=== PATIENT | male | born 1950 | race Caucasian/White ===

== ENCOUNTER 2016-12-21 08:08 | Emergency (ER) | payer MEDICARE ==
[~2016-12-21 08:08] MED LIST: ASPI-612 PO; ASPI325T8 PO; ATOR20TA58 PO; LISI-334 PO; METO25TA4 PO
[2016-12-21 08:50] LABS: BASO % 1 % (0-3); EOS % 2 % (0-3); HEMATOCRIT 43.6 % (39.0-53.0); HEMOGLOBIN 15.1 g/dL (13.0-17.5); LYMPH # 1.6 x10^3/uL (1.0-4.8); LYMPH % 29 % (24-48); MEAN CORPUSCULAR HEMOGLOBIN 34 pg (25-35); MEAN CORPUSCULAR HGB CONC 35 g/dL (31-37); MEAN CORPUSCULAR VOLUME 98 fL (79-100); MONO % 16 % (0-9); NEUT % 52 % (31-73); PLATELET COUNT 160 x10^3/uL (140-400); RED BLOOD COUNT 4.43 x10^6/uL (4.30-5.70); RED CELL DISTRIBUTION WIDTH 12.6 % (11.5-14.5); WHITE BLOOD COUNT 5.4 x10^3/uL (4.0-11.0)
--- NOTE | 2016-12-21 08:56 | RAD ---
AP portable chest radiograph 12/21/2016 Clinical History: Chest pain and tightness. Shortness of breath since morning. An AP portable erect digital radiograph of the chest was obtained. Comparison study is dated 09/18/2015. The cardiac silhouette is normal in size. The thoracic aorta is mildly tortuous. No acute pulmonary infiltrate is seen. No pleural effusion or pneumothorax is noted. Degenerative changes are seen involving the thoracic spine and both shoulders. Impression: No acute abnormality is seen.
[2016-12-21 08:59] LABS: CALCIUM 9.1 mg/dL (8.5-10.1); CREATININE 0.7 mg/dL (0.7-1.3); GFR 112.1; POTASSIUM 3.8 mmol/L (3.5-5.1)
[2016-12-21] MEDS ORDERED: ASPIRIN CHEWABLE 81 MG TABLET. PO ONE (09:00)
[2016-12-21 09:03] LABS: BILIRUBIN,URINE NEGATIVE (NEG); GLUCOSE,URINE NEGATIVE (NEG); NITRITE,URINE NEGATIVE (NEG); PH,URINE 6.5; PROTEIN,URINE NEGATIVE (NEG-TRACE); UROBILINOGEN,URINE 0.2 mg/dL (0.2 mg/dL)
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
[2016-12-21 09:05] LABS: ALBUMIN 3.7 g/dL (3.4-5.0); DIRECT BILIRUBIN 0.1 mg/dL (0.0-0.2); MAGNESIUM 1.9 mg/dL (1.8-2.4); TOTAL BILIRUBIN 0.4 mg/dL (0.2-1.0); TOTAL PROTEIN 7.6 g/dL (6.4-8.2)
[2016-12-21 09:13] LABS: CKMB MASS 3.8 ng/mL (0.0-3.6)
[2016-12-21 09:18] LABS: BACTERIA,URINE MANY /HPF (0-FEW); RBC,URINE 0 /HPF (0-2); WBC,URINE >40 /HPF (0-4)
[2016-12-21 10:36] LABS: CKMB MASS 3.6 ng/mL (0.0-3.6)
[2016-12-21 10:45] VITALS: BP 144/83
[2016-12-21] MEDS ORDERED: CEFP200T PO (10:55)
[2016-12-21] MEDS ORDERED: ASPI-630 PO (10:55)
--- NOTE | 2016-12-22 07:57 | EKG ---
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
--- NOTE | 2016-12-24 16:02 | VNOTE ---
CALL BACK NOTE CALL BACK Microbiology 12/21/16 Urine Culture - Final, Complete 12/21/16 Urine Culture Result 1 (SABI) - Final, Complete 12/21/16 Antimicrobic Susceptibility - Final, Complete Patient treated in ED with Rocephin and outpatient on Cefpodoxime. Enterococcus is susceptible to penicillins and the outpatient prescribed antibiotic given at discharge. No need for antibiotic change. RALPH BROWN Dec 24, 2016 16:02
== END 2016-12-21 11:33 | disposition home or self-care (01) ==
LOC: ER 08:08
DX: I20.8 Other forms of angina pectoris (principal); N39.0 Urinary tract infection, site not specified; I48.91 Unspecified atrial fibrillation; I10 Essential (primary) hypertension; E78.00 Pure hypercholesterolemia, unspecified
CPT/HCPCS: 36415; 71010; 80048; 80076; 81001; 82553; 83735; 83880; 84484; 85025; 87086; 87186; 93005; 96365; 99285; J0690

== ENCOUNTER 2017-12-13 23:18 | Emergency (ER) | payer MEDICARE ==
[~2017-12-13] VITALS: Ht 180.3 cm; Wt 104.3 kg
[~2017-12-13 23:18] MED LIST changes: +ASPI-630 PO; +CEFP200T PO
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
[2017-12-14] MEDS ORDERED: IV NORMAL SALINE 1000ML BAG 1,000 ML IV ONE (03:30)
[2017-12-14] MEDS ORDERED: FAMOTIDINE 20 MG/2 ML VIAL IVP ONE (03:30)
[2017-12-14 03:39] LABS: BASO # 0.1 x10^3/uL (0.0-0.2); BASO % 1 % (0-3); EOS % 0 % (0-3); HEMATOCRIT 44.6 % (39.0-53.0); LYMPH # 1.4 x10^3/uL (1.0-4.8); LYMPH % 15 % (24-48); MEAN CORPUSCULAR HEMOGLOBIN 35 pg (25-35); MEAN CORPUSCULAR HGB CONC 36 g/dL (31-37); MEAN CORPUSCULAR VOLUME 97 fL (79-100); MONO % 11 % (0-9); NEUT # 6.5 x10^3uL (1.8-7.7); NEUT % 73 % (31-73); PLATELET COUNT 169 x10^3/uL (140-400); RED BLOOD COUNT 4.58 x10^6/uL (4.30-5.70); RED CELL DISTRIBUTION WIDTH 13.6 % (11.5-14.5)
[2017-12-14 03:42] LABS: BILIRUBIN,URINE NEGATIVE (NEG); CLARITY,URINE CLEAR; COLOR,URINE YELLOW; NITRITE,URINE NEGATIVE (NEG); PROTEIN,URINE NEGATIVE (NEG-TRACE); UROBILINOGEN,URINE 0.2 mg/dL (0.2 mg/dL)
[2017-12-14 03:52] LABS: BACTERIA,URINE MANY /HPF (0-FEW); RBC,URINE OCC /HPF (0-2); SQUAMOUS EPITHELIAL CELL,UR OCC /LPF; WBC,URINE 20-40 /HPF (0-4)
[2017-12-14 03:57] LABS: CALCIUM 9.9 mg/dL (8.5-10.1); CREATININE 0.9 mg/dL (0.7-1.3); GFR 83.7; POTASSIUM 4.6 mmol/L (3.5-5.1)
[2017-12-14 04:02] LABS: ALBUMIN 3.9 g/dL (3.4-5.0); TOTAL BILIRUBIN 0.7 mg/dL (0.2-1.0); TOTAL PROTEIN 7.8 g/dL (6.4-8.2)
[2017-12-14] MEDS ORDERED: IOHEXOL 300 MG/ML 100ML VIAL. IV ONE (04:30)
[2017-12-14] MEDS ORDERED: CONTRAST GIVEN. MC PRN (04:30)
--- NOTE | 2017-12-14 04:36 | RAD ---
Examination: CT of the abdomen pelvis with IV contrast HISTORY: History of abdominal pain COMPARISON: None available TECHNIQUE: Axial CT images of the abdomen pelvis were performed with IV contrast. Coronal and sagittal reformats are performed Exposure: One or more of the following individualized dose reduction techniques were utilized for this examination: 1. Automated exposure control 2. Adjustment of the mA and/or kV according to patient size 3. Use of iterative reconstruction technique FINDINGS: The bibasilar lungs are clear. No evidence of free air identified in the abdomen. There is diffuse decreased attenuation noted throughout the liver likely hepatic steatosis. Mild hepatomegaly. Small gallstones identified within the gallbladder. The visualized spleen, adrenals grossly appears unremarkable. The visualized pancreas grossly appears unremarkable. The stomach is mildly distended. The small bowel is nondilated. Feces and gas noted in the colon. Multiple sigmoid colon diverticulosis. The appendix is normal. Urinary bladder is mildly distended. The bilateral kidneys enhance symmetrically. Moderate degenerative changes lumbar spine. IMPRESSION: 1. Hepatomegaly with hepatic steatosis. 2. Cholelithiasis. 3. Sigmoid colon diverticulosis. Electronically signed by: Celestine Cabrera MD (12/14/2017 4:32 AM) [id number]
[2017-12-14] MEDS ORDERED: cloNIDine HCL 0.1 MG TABLET PO ONE (05:00)
[2017-12-14] MEDS ORDERED: CLON0.1T PO (05:12)
[2017-12-14] MEDS ORDERED: FAMO-63 PO (05:12)
[2017-12-14] MEDS ORDERED: CEPH-264 PO (05:12)
[2017-12-14 05:15] VITALS: BP 163/93
--- NOTE | 2017-12-14 07:29 | EKG ---
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
[2017-12-17] MEDS ORDERED: CLOP75TA PO (10:50)
[2017-12-17] MEDS ORDERED: ATOR20TA58 PO (10:50)
[2017-12-17] MEDS ORDERED: LISI-338 PO (10:50)
[2017-12-17] MEDS ORDERED: FAMO-63 PO (10:50)
[2017-12-17] MEDS ORDERED: ASPI325T11 PO (10:50)
[2017-12-17] MEDS ORDERED: METO25TA4 PO (10:50)
== END 2017-12-14 05:45 | disposition home or self-care (01) ==
LOC: ER 23:18
DX: K80.50 Calculus of bile duct without cholangitis or cholecystitis without obstruction (principal); I10 Essential (primary) hypertension; N30.00 Acute cystitis without hematuria; I48.91 Unspecified atrial fibrillation; E78.00 Pure hypercholesterolemia, unspecified
CPT/HCPCS: 99285; J0690; J7030; Q9967; S0028; 36415; 74177; 80053; 81001; 83690; 84484; 85025; 93005

== ENCOUNTER 2017-12-23 19:53 | Emergency (ER) | payer MEDICARE ==
[~2017-12-23] VITALS: Ht 180.3 cm; Wt 104.3 kg
[~2017-12-23 19:53] MED LIST changes: +ASPI325T11 PO; +CEPH-264 PO; +CLON0.1T PO; +CLOP75TA PO; +FAMO-63 PO; +LISI-338 PO
[2017-12-23] MEDS ORDERED: DEXAMETHASONE SOD PHOS 20 MG/5 ML VIAL. IV ONE (20:30)
[2017-12-23] MEDS ORDERED: IV NORMAL SALINE 1000ML BAG 1,000 ML IV ONE (20:30)
[2017-12-23] MEDS ORDERED: ASPIRIN 325 MG TABLET PO ONE (20:30)
[2017-12-23 20:33] LABS: BASO # 0.1 x10^3/uL (0.0-0.2); BASO % 1 % (0-3); EOS # 0.3 x10^3/uL (0.0-0.7); EOS % 4 % (0-3); HEMOGLOBIN 14.6 g/dL (13.0-17.5); LYMPH # 1.3 x10^3/uL (1.0-4.8); LYMPH % 15 % (24-48); MEAN CORPUSCULAR HEMOGLOBIN 35 pg (25-35); MEAN CORPUSCULAR HGB CONC 36 g/dL (31-37); MEAN CORPUSCULAR VOLUME 99 fL (79-100); MONO % 11 % (0-9); NEUT # 5.9 x10^3uL (1.8-7.7); NEUT % 69 % (31-73); PLATELET COUNT 215 x10^3/uL (140-400); RED BLOOD COUNT 4.15 x10^6/uL (4.30-5.70); RED CELL DISTRIBUTION WIDTH 13.9 % (11.5-14.5); WHITE BLOOD COUNT 8.6 x10^3/uL (4.0-11.0)
[2017-12-23 20:43] LABS: PROTHROMBIN TIME PATIENT 13.7 SEC (11.7-14.0)
[2017-12-23 20:48] LABS: CALCIUM 9.4 mg/dL (8.5-10.1); CREATININE 0.9 mg/dL (0.7-1.3); GFR 83.7; POTASSIUM 4.5 mmol/L (3.5-5.1)
[2017-12-23 20:54] LABS: ALBUMIN 3.6 g/dL (3.4-5.0); ALBUMIN/GLOBULIN RATIO 0.9 (1.0-1.7); MAGNESIUM 1.8 mg/dL (1.8-2.4); TOTAL BILIRUBIN 0.6 mg/dL (0.2-1.0); TOTAL PROTEIN 7.5 g/dL (6.4-8.2)
[2017-12-23] MEDS ORDERED: CONTRAST GIVEN. MC PRN (21:00)
[2017-12-23] MEDS ORDERED: IOHEXOL 300 MG/ML 100ML VIAL. IV ONE (21:00)
--- NOTE | 2017-12-23 21:44 | RAD ---
Exam performed: CT scan of the head without contrast. Date of Service: 12/23/2017. Comparison: None available Clinical History: Dizziness and syncope. Technique: Helical acquisitions are obtained from the foramen magnum to the vertex without intravenous administration of contrast. Findings: The ventricles are midline without evidence of dilatation. Normal peralta-white differentiation is maintained. There is no extra axial fluid collection, intraparenchymal hemorrhage or mass lesion. The visualized portions of the orbits, paranasal sinuses and the mastoid air cells appear clear. The calvarium is intact. Impression: 1. No acute intracranial process detected. End impression CT ANGIOGRAM: Technique: Contiguous helical acquisitions are obtained through the chest during intravenous administration of [ 75 ] cc of [ Omnipaque 300 ] . [Sagittal and coronal MIP images were obtained and reviewed Findings: The structures at the thoracic inlet including both lobes of the thyroid gland appear normal.Pulmonary arterial opacification is adequate to evaluate for pulmonary embolus. There is no evidence for pulmonary embolism. The heart is normal in size. No pericardial effusion is seen. Diffuse atheromatous coronary calcification. Aorta is normal in caliber. No mediastinal or hilar lymphadenopathy is seen. Calcified right paratracheal lymph node is seen. No infiltrates or pleural effusions are seen. Dependent bibasilar atelectasis. There is trace right fissural fluid. Cholelithiasis Osseous structures appear intact. Impression: 1. Study is negative for pulmonary embolism. Trace fissural fluid 2. Cholelithiasis. PQRS Compliance Statement: One or more of the following individualized dose reduction techniques were utilized for this examination: 1. Automated exposure control 2. Adjustment of the mA and/or kV according to patient size 3. Use of iterative reconstruction technique Electronically signed by: Shyanne Shelton MD (12/23/2017 9:41 PM) [facility]
[2017-12-23] MEDS ORDERED: PRED20TA PO (23:47)
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
[2017-12-24] VITALS: BP 149/78
--- NOTE | 2017-12-24 08:34 | EKG ---
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
== END 2017-12-24 00:25 | disposition home or self-care (01) ==
LOC: ER 19:53
DX: R06.02 Shortness of breath (principal); R21 Rash and other nonspecific skin eruption; R55 Syncope and collapse; K80.20 Calculus of gallbladder without cholecystitis without obstruction; E78.00 Pure hypercholesterolemia, unspecified; E11.9 Type 2 diabetes mellitus without complications; I48.91 Unspecified atrial fibrillation; I10 Essential (primary) hypertension; I25.10 Atherosclerotic heart disease of native coronary artery without angina pectoris; Z86.73 Personal history of transient ischemic attack (TIA), and cerebral infarction without residual deficits; Z95.5 Presence of coronary angioplasty implant and graft
CPT/HCPCS: 36415; 70450; 71275; 80053; 82550; 83690; 83735; 83880; 84484; 85025; 85610; 93005; 96361; 96374; 99285; J1100; J7030; Q9967

== ENCOUNTER 2018-08-08 21:11 | Emergency (ER) | payer MEDICARE ==
[~2018-08-08] VITALS: Ht 180.3 cm; Wt 108.0 kg
[~2018-08-08 21:11] MED LIST changes: +ASCO500C PO; +BIOT10004 PO; +CHOL500016 PO; +FOLI1TAB16 PO; +GLUC-12 PO; +LACT1CAP8 PO; +LISI-130 PO; +MAGN400C PO; +MULT-658 PO; +MULT1TAB90 PO; +OMEG-165 PO; +PRED20TA PO; +THIA100T22 PO; +UBID50TA PO; +VITA100T5 PO; +VITA80003 PO; +ZINC50TA2 PO
[2018-08-08] MEDS ORDERED: KETOROLAC 15 MG/ML VIAL. IV ONE (22:30)
[2018-08-08 22:35] LABS: BASO % 0 % (0-3); EOS % 1 % (0-3); HEMOGLOBIN 14.4 g/dL (13.0-17.5); LYMPH # 1.1 x10^3/uL (1.0-4.8); LYMPH % 15 % (24-48); MEAN CORPUSCULAR HEMOGLOBIN 32 pg (25-35); MEAN CORPUSCULAR HGB CONC 33 g/dL (31-37); MEAN CORPUSCULAR VOLUME 94 fL (79-100); MONO # 0.8 x10^3/uL (0.0-1.1); MONO % 10 % (0-9); NEUT # 5.3 x10^3uL (1.8-7.7); NEUT % 73 % (31-73); PLATELET COUNT 194 x10^3/uL (140-400); RED BLOOD COUNT 4.56 x10^6/uL (4.30-5.70); RED CELL DISTRIBUTION WIDTH 13.8 % (11.5-14.5); WHITE BLOOD COUNT 7.3 x10^3/uL (4.0-11.0)
[2018-08-08 22:49] LABS: CALCIUM 8.8 mg/dL (8.5-10.1); GFR 74.1; POTASSIUM 4.8 mmol/L (3.5-5.1)
[2018-08-08 22:53] LABS: ALBUMIN 3.8 g/dL (3.4-5.0); ALBUMIN/GLOBULIN RATIO 1.1 (1.0-1.7); MAGNESIUM 1.5 mg/dL (1.8-2.4); TOTAL BILIRUBIN 0.6 mg/dL (0.2-1.0); TOTAL PROTEIN 7.4 g/dL (6.4-8.2)
[2018-08-08] MEDS ORDERED: MAGNESIUM CHLORIDE ER 64 MG TABLET.ER PO ONE (23:30)
[2018-08-08] MEDS ORDERED: HYDR-3164 PO (23:44)
[2018-08-08] MEDS ORDERED: CYCL5TAB PO (23:44)
[2018-08-08 23:50] VITALS: BP 157/67
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
--- NOTE | 2018-08-09 07:54 | EKG ---
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
--- NOTE | 2018-08-09 08:49 | RAD ---
LUMBAR SPINE 2-3V History: Evaluate for compression fracture (no other provided history) Comparison: CT lumbar spine exam December 14, 2017 Findings: 3 views of the lumbar spine are submitted. Lumbar vertebral body stature is unchanged. There is again advanced degenerative disc disease L4-5 and L5-S1 and to lesser degree L3-4, minimally at L2-3. There is multilevel spondylosis and facet degenerative change. There is minimal posterior subluxation L4 relative to L5. There is atherosclerotic calcification of the abdominal aorta. Impression: 1. Lumbar vertebral body stature is overall maintained. 2. There is multilevel lumbar degenerative disc disease greater inferiorly of the lumbar spine, also multilevel facet degenerative change. Electronically signed by: Jason Jacob MD (08/09/2018 8:46 AM) [email or web address]
== END 2018-08-09 00:04 | disposition home or self-care (01) ==
LOC: ER 21:11
DX: M54.5 Low back pain (principal); I48.91 Unspecified atrial fibrillation; I25.10 Atherosclerotic heart disease of native coronary artery without angina pectoris; E78.00 Pure hypercholesterolemia, unspecified; E11.9 Type 2 diabetes mellitus without complications; I10 Essential (primary) hypertension; X50.9XXA Other and unspecified overexertion or strenuous movements or postures, initial encounter; Y93.89 Activity, other specified; Y92.89 Other specified places as the place of occurrence of the external cause; Y99.8 Other external cause status
CPT/HCPCS: 36415; 72100; 80053; 83735; 84484; 85025; 93005; 96374; 96375; 99285; J1885; J2060

== ENCOUNTER → 2018-08-13 | Outpatient (CLI) | payer MEDICARE ==
[2018-08-08 23:50] VITALS: BP 157/67
[~2018-08-13] MED LIST changes: +CYCL5TAB PO; +HYDR-3164 PO
--- NOTE | 2018-08-13 12:33 | KCIC ---
Two-view ORBIT dated 08/13/2018. No comparison available. Clinical data indication: Evaluate for orbital foreign body prior to MRI. FINDINGS: 2 views orbits show no evidence of radiopaque metallic foreign body. There is some metallic density at the mouth consistent with prior dental procedure. Osseous structures intact. IMPRESSION: No evidence of orbital metallic foreign body. Electronically signed by: James Vargas MD (08/13/2018 12:30 PM) [id number]
--- NOTE | 2018-08-13 13:40 | KCIC ---
MRI left knee without contrast dated 08/13/2018. No comparison available. CLINICAL INDICATION: Knee pain. TECHNIQUE: Routine multiplanar multisequence MR imaging of left knee performed. FINDINGS: Moderate tricompartmental hypertrophic change with prominent marginal osteophytes. Thinning and surface irregularity of the articular cartilage throughout. Full-thickness cartilage loss at the weightbearing surfaces medial femoral condyle and medial tibial plateau. There is also full-thickness cartilage loss of the medial patellar facet and medial femoral trochlea. Small joint effusion. Small to moderate-sized popliteal cyst measures 5.5 cm craniocaudal. Small loose body at the posterior joint space measuring 10 mm. Anterior cruciate and posterior cruciate ligaments are intact. Medial and lateral collateral complexes are intact. Iliotibial band, popliteus tendon and pes anserine complex within normal limits. Quadriceps and patellar tendon are intact. No abnormality of the medial or lateral retinaculum. Mild increased signal within the substance of the proximal patellar tendon. Mild edema within the prepatellar and superficial infrapatellar soft tissues. Blunted morphology and deficiency in size of the posterior horn and body of medial meniscus. The anterior horn is intact. Lateral meniscus is normal in morphology and signal. IMPRESSION: 1. Moderate tricompartmental degenerative arthrosis and chondromalacia. There is full-thickness cartilage loss of the medial and anterior compartments. 2. Blunted morphology of the posterior horn/body of medial meniscus could be related to prior partial meniscectomy and/or free edge degenerative radial tearing. 3. Small joint effusion and small popliteal cyst. There is a prominent intra-articular loose body. 4. Mild patellar tendinosis. Electronically signed by: James Vargas MD (08/13/2018 1:37 PM) [id number]
--- NOTE | 2018-08-13 13:43 | KCIC ---
MRI right knee without contrast dated 08/13/2018. No comparison available. CLINICAL INDICATION: Knee pain. TECHNIQUE: Routine multiplanar multisequence MR imaging of right knee performed. No contrast administered. FINDINGS: Moderate tricompartmental hypertrophic change with prominent marginal osteophytes. Thinning and surface irregularity of the articular cartilage throughout. Broad zones of full-thickness cartilage loss at the weightbearing surfaces medial femoral condyle and medial tibial plateau. There is also full-thickness cartilage loss at the medial patellar facet and medial femoral trochlea with full-thickness cartilage fissuring at the patellar apex. Small joint effusion. Moderate-sized popliteal cyst measures up to 6.6 cm craniocaudal. No loose body. Anterior cruciate and posterior cruciate ligaments intact. Medial and lateral collateral complexes are intact. Iliotibial band, popliteus tendon and pes anserine complex within normal limits. Quadriceps and patellar tendon are intact. No abnormality of the medial or lateral retinaculum. Increased signal of the proximal patellar tendon with patchy edema in the prepatellar and superficial infrapatellar soft tissues. Deficiency in size and blunted morphology of the posterior horn and body of medial meniscus. Anterior horn is intact. Lateral meniscus is normal in morphology and signal. IMPRESSION: 1. Mild to moderate tricompartmental degenerative arthrosis and chondral malacia. There is full-thickness cartilage loss of the anterior and medial compartments. 2. Blunted morphology of the posterior horn and body of medial meniscus could be related to prior partial meniscectomy and/or chronic degenerative radial tearing. 3. Small joint effusion and moderate-sized popliteal cyst. 4. Mild patellar tendinosis. Electronically signed by: James Vargas MD (08/13/2018 1:40 PM) [facility]
== END | disposition home or self-care (01) ==
LOC: KCIC MRI 11:55
PROVIDERS: ATTEND Nurse Practitioner Family
DX: M17.0 Bilateral primary osteoarthritis of knee (principal); M89.38 Hypertrophy of bone, other site; M25.462 Effusion, left knee; M25.461 Effusion, right knee; M71.22 Synovial cyst of popliteal space [Baker], left knee; M71.21 Synovial cyst of popliteal space [Baker], right knee; M23.42 Loose body in knee, left knee; M23.41 Loose body in knee, right knee; M25.762 Osteophyte, left knee; M25.761 Osteophyte, right knee
CPT/HCPCS: 70030; 73721

== ENCOUNTER 2018-09-24 23:56 | Emergency (ER) | payer MEDICARE ==
[~2018-09-24] VITALS: Ht 180.3 cm; Wt 108.9 kg
[2018-09-25] MEDS ORDERED: IV NORMAL SALINE 1000ML BAG 1,000 ML IV ONE (00:30)
[2018-09-25] MEDS ORDERED: ASPIRIN 325 MG TABLET PO ONE (00:30)
[2018-09-25 00:42] LABS: BASO % 1 % (0-3); EOS % 0 % (0-3); HEMATOCRIT 41.6 % (39.0-53.0); HEMOGLOBIN 14.4 g/dL (13.0-17.5); LYMPH # 1.6 x10^3/uL (1.0-4.8); LYMPH % 21 % (24-48); MEAN CORPUSCULAR HEMOGLOBIN 32 pg (25-35); MEAN CORPUSCULAR HGB CONC 35 g/dL (31-37); MEAN CORPUSCULAR VOLUME 92 fL (79-100); MONO # 0.8 x10^3/uL (0.0-1.1); MONO % 11 % (0-9); NEUT % 67 % (31-73); PLATELET COUNT 181 x10^3/uL (140-400); PROTHROMBIN TIME PATIENT 13.7 SEC (11.7-14.0); RED BLOOD COUNT 4.53 x10^6/uL (4.30-5.70); RED CELL DISTRIBUTION WIDTH 15.5 % (11.5-14.5); WHITE BLOOD COUNT 7.5 x10^3/uL (4.0-11.0)
[2018-09-25 00:44] LABS: CALCIUM 9.8 mg/dL (8.5-10.1); CREATININE 0.8 mg/dL (0.7-1.3); GFR 95.8; POTASSIUM 4.1 mmol/L (3.5-5.1)
[2018-09-25 00:52] LABS: ALBUMIN 3.9 g/dL (3.4-5.0); MAGNESIUM 1.8 mg/dL (1.8-2.4); TOTAL BILIRUBIN 0.5 mg/dL (0.2-1.0); TOTAL PROTEIN 7.8 g/dL (6.4-8.2)
[2018-09-25 00:55] LABS: BILIRUBIN,URINE NEGATIVE (NEG); COLOR,URINE YELLOW; NITRITE,URINE NEGATIVE (NEG); PROTEIN,URINE NEGATIVE (NEG-TRACE); UROBILINOGEN,URINE 0.2 mg/dL (0.2 mg/dL)
[2018-09-25 00:57] LABS: CLARITY,URINE CLEAR
[2018-09-25 00:59] LABS: SQUAMOUS EPITHELIAL CELL,UR OCC /LPF
[2018-09-25 01:00] LABS: BACTERIA,URINE 0 /HPF (0-FEW); RBC,URINE RARE /HPF (0-2); WBC,URINE RARE /HPF (0-4)
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
[2018-09-25] MEDS ORDERED: LABETALOL 20 MG/4 ML DISP.SYRIN. IVP ONE (01:45)
[2018-09-25] MEDS ORDERED: cloNIDine HCL 0.1 MG TABLET PO ONE (01:45)
[2018-09-25 02:11] VITALS: BP 185/85
--- NOTE | 2018-09-25 03:40 | RAD ---
Chest radiograph 09/25/2018 1:16 AM INDICATION: Shortness of air COMPARISON: December 16, 2017 TECHNIQUE: Frontal and lateral views of the chest are provided. FINDINGS: The cardiomediastinal silhouette is within normal limits. There are no pleural effusions. There is no pulmonary vascular congestion. There is no pneumothorax. The lungs are clear. No significant osseous abnormality is identified. IMPRESSION: No acute cardiopulmonary process. Electronically signed by: Naomi Saul MD (09/25/2018 3:37 AM) [facility]
--- NOTE | 2018-09-25 09:50 | EKG ---
[facility] [address] [place] [address] Test Date: 2018-09-25 Test Time: 00:06:29 Pat Name: LAWSON PEPPER Department: Room: Gender: M [employer]: : 1950 Requested By: KYMBERLY MORALES Order Number: [id number] Reading MD: Measurements Intervals Placida Rate: 87 P: 53 VT: 146 QRS: 7 QRSD: 88 T: 57 QT: 374 QTc: 451 Interpretive Statements SINUS RHYTHM COMPLEX(ES) WITH ABERRANT INTRAVENTRICULAR CONDUCTION VENTRICULAR PREMATURE COMPLEX(ES), BIGEMINY INCOMPLETE RIGHT BUNDLE BRANCH BLOCK ABNORMAL ECG RI6.01 Unconfirmed report No previous ECG available for comparison
== END 2018-09-25 02:53 | disposition home or self-care (01) ==
LOC: ER 23:56
DX: R53.1 Weakness (principal); I10 Essential (primary) hypertension; E11.9 Type 2 diabetes mellitus without complications; E78.00 Pure hypercholesterolemia, unspecified; I48.91 Unspecified atrial fibrillation; I25.10 Atherosclerotic heart disease of native coronary artery without angina pectoris; Z95.5 Presence of coronary angioplasty implant and graft
CPT/HCPCS: 36415; 71046; 80053; 81001; 82553; 83690; 83735; 83880; 84484; 85025; 85610; 93005; 96374; 99285; J3490; J7030

== ENCOUNTER 2019-05-23 06:26 | Emergency (ER) | payer MEDICARE ==
[~2019-05-23] VITALS: Ht 180.3 cm; Wt 101.8 kg
[2019-05-23 06:38] VITALS: BP 175/110
[2019-05-23] MEDS ORDERED: HYDR-3164 PO (07:00)
[2019-05-23] MEDS ORDERED: CLIN300C8 PO (07:00)
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
== END 2019-05-23 07:16 | disposition home or self-care (01) ==
LOC: ER 06:26
DX: K08.89 Other specified disorders of teeth and supporting structures (principal); I48.91 Unspecified atrial fibrillation; E11.9 Type 2 diabetes mellitus without complications; E78.00 Pure hypercholesterolemia, unspecified; I10 Essential (primary) hypertension; I25.10 Atherosclerotic heart disease of native coronary artery without angina pectoris; Z95.5 Presence of coronary angioplasty implant and graft; Z87.891 Personal history of nicotine dependence; Z88.5 Allergy status to narcotic agent; Z88.1 Allergy status to other antibiotic agents
CPT/HCPCS: 99283

== ENCOUNTER → 2019-09-09 | Outpatient (CLI) | payer MEDICARE ==
[2019-09-01 14:06] VITALS: BP 152/84
[~2019-09-09] MED LIST changes: +ACET325T9 PO; +ALBU2.5V8 NEB; +AMLO5TAB10 PO; +CLIN300C8 PO; +CRESTOR5 MG PO; +CYAN-9 PO; +DOCU100C28 PO; +MAG30ORA2 PO; +METO50TA4 PO; +ZINC50TA10 PO; -ZINC50TA2 PO
--- NOTE | 2019-09-09 19:26 | RAD ---
EXAM: PET W CT SKULL TO MIDTHIGH EXAM DATE: 09/09/2019 INDICATION: Lung nodule RADIOPHARMACEUTICAL: 13.11 mCi of F-18 Fluorodeoxyglucose (FDG) I.V. via the left humeral.. TECHNIQUE: Patient weight: 219 pounds. Following at least four-hour fasting, the patient's blood glucose was 97 mg/dl. Approximately 1 hour after administration of FDG, overlapping emission scanning was performed from the orbital meatal line through the pelvis. A low-dose CT was performed for attenuation correction purposes and anatomic localization. Fused images of PET and CT were reviewed. Any standardized uptake values (SUV) reported are maximum values within a volume region of interest, expressed in gm/ml. COMPARISON: CT guided lung biopsy of 08/31/2019 FINDINGS: PET: In the head and neck, activity related muscle activity is evident, with no abnormal FDG uptake suspicious for malignancy is identified. In the chest, the posterior right upper lobe only nodule shows abnormal FDG uptake to max SUV of 5.45. Compares with background mediastinal uptake of 2.94. No abnormal uptake in the mediastinum, demetrice or axillary lymph nodes. In the abdomen and pelvis, no abnormal FDG uptake is appreciated. There is background activity in the liver to max SUV of 3.05. CT: The CT images of the neck show carotid atherosclerotic calcifications. No enlarged cervical lymph nodes. The chest shows residual postbiopsy changes in the right upper lobe surrounding a 2 cm spiculated nodule in the posterior right upper lobe causing mild retraction of the major fissure. There is multivessel coronary calcification. Borderline ectasia of the ascending thoracic aorta to 4 cm. No pneumothorax or pleural effusion. Included abdomen shows cholelithiasis and extensive abdominal aortic calcifications with focal ectasia to 2.7 cm in the distal abdominal aorta. There is severe atherosclerotic calcifications the bilateral common femoral arteries, at risk for flow-limiting stenoses. The urinary bladder shows mild diffuse wall thickening. The bowel shows scattered colonic diverticulosis. IMPRESSION: A posterior right upper lobe 2 cm spiculated pulmonary nodule shows abnormal FDG uptake to max SUV of 5.45 and remains suspicious for a primary lung malignancy. No other sites of abnormal FDG uptake suspicious for FDG avid malignancy.. Electronically signed by: Meghan Vaughn MD (09/09/2019 7:23 PM) [id number]
== END ==
LOC: PETSC 07:07
PROVIDERS: ATTEND Internal Medicine Critical Care Medicine
DX: C80.1 Malignant (primary) neoplasm, unspecified (principal); R91.1 Solitary pulmonary nodule; K57.30 Diverticulosis of large intestine without perforation or abscess without bleeding; K80.20 Calculus of gallbladder without cholecystitis without obstruction; I70.203 Unspecified atherosclerosis of native arteries of extremities, bilateral legs; I77.811 Abdominal aortic ectasia
CPT/HCPCS: 78815; A9552

== ENCOUNTER → 2019-09-20 | Outpatient (CLI) | payer MEDICARE ==
[2019-09-01 14:06] VITALS: BP 152/84
[~2019-09-20] MED LIST changes: +DICLOFENAC GEL 1%; +FAMO20TA5 PO
--- NOTE | 2019-09-21 14:39 | RESP ---
DATE OF SERVICE: 09/20/2019 PULMONARY FUNCTION TEST The patient's FVC was 3.84, which is 84% predicted, FEV1 2.59, which is 77% predicted. The FEV1/FVC ratio was mildly reduced.. FEF 25-75 was 1.62, which was 63% predicted. There was no response to bronchodilators. Lung volume showed a total lung capacity of 94% predicted. Diffusion capacity of 111% predicted. IMPRESSION: 1. Spirometry findings suggestive of mild obstructive airway/small airway dysfunction. 2. No response to bronchodilators. 3. Normal total lung capacity. 4. Normal diffusion capacity. CLEM MATHIS MD DR: BHARGAV/mc JOB#: [id number] / [id number] JEREMI
== END ==
LOC: PF 10:52
PROVIDERS: ATTEND Internal Medicine Critical Care Medicine
DX: C80.1 Malignant (primary) neoplasm, unspecified (principal); R06.02 Shortness of breath
CPT/HCPCS: 94060; 94640; 94726; 94729; 94664

== ENCOUNTER → 2019-09-21 | Outpatient (CLI) | payer MEDICARE ==
[2019-09-01 14:06] VITALS: BP 152/84
[~2019-09-21] MED LIST changes: +REGADENOSON 0.4 MG/5 ML DISP.SYRIN. IV ONE
--- NOTE | 2019-09-21 11:33 | RAD ---
MR#: [id number] Date of Study: 09/21/2019 Ordering Physician: LEILANI CARTER, Referring Physician: DOC COOK Tech: RT Luther Villegas) (N) APPROVED REPORT Test Type: Pharmacological Stress Nurse/Tech: Keyla Mccrary RN Test Indications: preop clearance Cardiac History: Hypertension, Family history,COPD,former smoker, 1 stent (2018) Medications: See Electronic Medical Record Medical History: See Electronic Medical Record Resting ECG: SR with PVC's Resting Heart Rate: 69 bpm Resting Blood Pressure: 134/68mmHg Pretest Chest Pain: No chest pain Nurse/Tech Notes S1,S2 and lungs clear to auscultation. Consent: The procedure was explained to the patient in lay terms. Informed consent was witnessed. Heber eout was entered into [employer]. History and Stress Test performed by RT Bakari (Tyron) (N) Pharm. Details Pharmacologic stress testing was performed using 0.4mg per 5ml of regadenoson given intravenously ove r 7-10 seconds. Stress Symptoms Dyspnea POST EXERCISE Reason for Termination: Infusion complete Target HR: No Max HR: 90 bpm 70% of Maximum Predicted HR: 127 bpm Max Blood Pressure: 144/50mmHg Blood Pressure response to exercise: Normal blood pressure response during stress. Heart Rate response to exercise: WNL Chest Pain: No. Arrhythmia: Yes. frequent PVC's ST Change: No. INTERPRETATION Stress EKG Conclusion: Baseline EKG showed sinus rhythm with PVCs. Nondiagnostic changes at peak str ess. Frequent PVCs without any other significant arrhythmias. Imaging Protocol IMAGE PROTOCOL: Rest Tc-99m/stress Tc-99m 1 day Rest: Stress: Viability: Radiopharm.Tc99m [id number] Sestamibi Pyki14dQi 32mCi Duration 15min. 10min. Img Date 09/21/2019 09/21/2019 Inj-Img [id number]. 60min. Rest Admin Site:IV - Left AntecubitalAdministrator:RT Luther Villegas)(N) Stress Admin Site: IV - Left AntecubitalAdministrator: RUSS Luevano STRESS DATA End Diast. Vol.137.0mlAv. Heart Rate81.0bpm End Syst. Vol.58.0mlCO Index BSA0.0L/min Myocardial Mvqa816.0gEject. Evhkluqk23.0% Stress Rates Pk. Fill Rate2.09EDV/secLVtime Pk. Fill 125.92msec Pk. Empty Rate2.85ESV/secLVtime Pk. Efuua618.38msec 04/01 Pk. Fill1.15EDV/sec Stress Scores Regional WT0.00Summed WT4.00 Regional WM0.00Summed WM6.00 LV Perfusion Scintigraphic images did not show any significant fixed or reversible defects. Wall Motion Mild left ventricular systolic dysfunction with ejection fraction calculated at 46%. LV Perf. Quant 17 Seg. SSS0.00 17 Seg. SRS0.00 17 Seg. SDS0.00 Stress Defect Extent (% LAD)0.00Rest Defect Extent (% LAD)0.00Rev. Defect Extent (% LAD)0.00 Stress Defect Extent (% LCX) 0.00Rest Defect Extent (% LCX)0.00Rev. Defect Extent (% LCX)0.00 Stress Defect Extent (% RCA)0.00Rest Defect Extent (% RCA)0.00Rev. Defect Extent (% RCA)0.00 Stress Defect Extent (% ESUEBIO)0.00Rest Defect Extent (% EUSEBIO)0.00Rev. Defect Extent (% EUSEBIO)0.00 Conclusion 1. Regadenoson cardioisotope stress test did not show any evidence of ischemia or infarct. 2. Mild left ventricular systolic dysfunction with ejection fraction calculated at 46%. 3. Low to intermediate risk for cardiac events. Signed by : Yoni Isbell, Electronically Approved : 09/21/2019 11:32:26
--- NOTE | 2019-09-21 11:34 | RAD ---
MR#: [id number] Date of Study: 09/21/2019 Ordering Physician: LEILANI CARTER, Referring Physician: LEILANI CARTER, Tech: Alex Holcomb MBA, RDMS, RVT, RDCS, RTR APPROVED REPORT Patient Location: OUT-PATIENT Indications Uncontrolled HTN Renal Artery Doppler Right Renal Artery Left Renal Arter y Proximal 134.0/17.0 cm/secProximal 68.0/10.0 cm/sec Mid 116.0/19.0 cm/secMid 57.0/11.0 cm/sec Distal 140.0/36.0 cm/secDistal 55.0/11.0 cm/sec Renal/Aorta Ratio 0.76Renal/Aorta Ratio 0.37 Prox. Resistive Index 0.87Prox. Resistive Index 0.85 Mid Resistive Index 0.83Mid Resistive Index 0.80 Distal Resistive Index 0.74Distal Resistive Index 0.81 Rt. Segmental A. 32.0/7.0 cm/secLt. Segmental A. 29.0/9.0 cm/sec Renal Measurements RightLeft Kidney Wvcxzh97 cm cmKidney Tfzyms55.7 cm cm Right Additional FindingsLeft Additional Findings Aortic Doppler VelocityWaveform Distal Aorta 184.0 cm/sec Findings Technically difficult study. Grossly no obvious renal masses noted on limited evaluation. Spectral waveforms and color Doppler of the proximal, mid and distal renal arteries are suboptimal bu t grossly do not demonstrate any significant velocity acceleration. Normal resistive indices bilater ally. Normal renal to aortic ratios bilaterally. Critical Notification Critical Value: No <Conclusion> 1. Technically difficult study but within these limitations no obvious evidence of renal artery sten osis Signed by : Jason Tate, Electronically Approved : 09/21/2019 11:33:40
== END | disposition home or self-care (01) ==
LOC: NM 07:36
PROVIDERS: ATTEND Internal Medicine Cardiovascular Disease
DX: I25.10 Atherosclerotic heart disease of native coronary artery without angina pectoris (principal); I10 Essential (primary) hypertension
CPT/HCPCS: 78452; 93017; 93975; A9500; J2785